=== PATIENT | female | born 1945 | race Caucasian/White ===

== ENCOUNTER → 2016-09-30 | Outpatient (CLI) | payer MEDICARE, BC ==
--- NOTE | ~2016-09-30 | US128 ---
[id number] [address] [id number] O MR#: [id number] Acc #: [id number] NAME: FIORELLA CORONA : 1945 SEX: F STUDY DATE/TIME: 09/30/2016 14:15 UNIT: [facility]US ROOM: STUDY DESCRIPTION: Thyroid Attending Physician: Chuck Pryor M.D. Ordering Physician: Chuck Pryor M.D. Primary Care Physician: Chuck Pryor M.D. MEDICAL IMAGING REPORT This report is preliminary unless electronic signature is present. EXAM Thyroid ultrasound 09/30/2016 HISTORY Right thyroid nodule noted incidentally during carotid Doppler September 02. FINDINGS The right lobe of the gland is overall homogeneous and normal in echotexture. In the midpole portion of the gland, there is a mostly cystic 1.5 x 1.0 x 0.9 cm nodule, though it does contain a small mural solid portion. The left lobe of the gland is normal and homogeneous in echotexture. There is a small vagal hyperechoic lesion in the upper pole 6 x 3 x 6 mm. Tiny cystic lesions are seen in the mid to lower pole. IMPRESSION A few small subcentimeter lesions are seen. Dominant lesion on the right measures 1.5 x 1.0 x 0.9 cm. It is mostly cystic with some mural tissue. Given the size of the lesion and patient history, surveillance ultrasound could be considered. Tissue sampling could be attempted though given the large cystic portion it may prove nondiagnostic. Dictated by... Reyes Pitt M.D. THIS IS AN ELECTRONICALLY VERIFIED REPORT Reyes Pitt M.D. at 10/04/2016 1:50 PM HANSEL/tala TD: 10/02/2016 07:06 JOB #: [id number] MEDICAL IMAGING REPORT Page 1 of 1
== END | disposition home or self-care (01) ==
LOC: SGUS 13:29
DX: E04.1 Nontoxic single thyroid nodule (principal); E07.89 Other specified disorders of thyroid
CPT/HCPCS: 76536

== ENCOUNTER → 2016-10-18 | Outpatient (CLI) | payer MEDICARE, BC ==
--- NOTE | ~2016-10-18 | XA230 ---
[facility] A Service of [facility] RADIOLOGY TEXT RESULTS PATIENT: FIORELLA CORONA LOCATION: [facility] : 49 UNIT #: [id number] AGE: [address]: Chuck Pryor MD SEX: F ORDER DR: [id number] [facility]. [place], [place] [address] [id number] O MR#: [id number] Acc #: [id number] NAME: FIORELLA CORONA : 1945 SEX: F STUDY DATE/TIME: 10/18/2016 10:19 UNIT: [facility] ROOM: STUDY DESCRIPTION: XA FNA Attending Physician: Chuck Pryor M.D. Referring Physician: Chuck Pryor M.D. Ordering Physician: Chuck Pryor M.D. Primary Care Physician: Chuck Pryor M.D. MEDICAL IMAGING REPORT This report is preliminary unless electronic signature is present EXAM Ultrasound-guided thyroid FNA. INDICATIONS Right thyroid nodule. PROCEDURE The risks, benefits, and alternatives to the procedure were explained to the patient, and signed, informed consent was obtained. She was placed supine on the angiographic table and was prepped and draped in usual sterile fashion. Time-out was performed as per protocol. Preliminary ultrasound did show a mixed solid and cystic nodule within the right lobe of the thyroid gland corresponding to the recently seen nodule. This image was permanently saved. Skin and subcutaneous tissues were anesthetized with buffered lidocaine. 4 separate passes were made into the lesion under direct sterile sonographic guidance. I used two 25-gauge needles as well as two 22-gauge needles. I did attempt to aspirate some of the fluid without any success. Specimens were given to a charge histotechnologist and the procedure was subsequently terminated. IMPRESSION Technically successful ultrasound-guided right thyroid FNA as noted above. Please note, 4 separate passes were made using both 25-gauge and 22-gauge needles. If biopsy results are indeterminate, I would suggest short-term sonographic followup of the nodule in 6 months. Dictated by... Francesca Montalvo M.D. THIS IS AN ELECTRONICALLY VERIFIED REPORT Francesca Montalvo M.D. at 10/20/2016 6:30 PM AFF/pc [facility] A Service of [facility] RADIOLOGY TEXT RESULTS PATIENT: FIORELLA CORONA LOCATION: [facility] #: [id number] : [birth year] UNIT #: [id number] AGE: [address]: Chuck Pryor MD SEX: F ORDER DR: TD: 10/20/2016 12:24 JOB #: [id number] MEDICAL IMAGING REPORT Page 1 of 1 COPY
== END | disposition home or self-care (01) ==
LOC: CIVR 09:32
DX: E04.1 Nontoxic single thyroid nodule (principal)
CPT/HCPCS: 76942; 88173; 88305